=== PATIENT | male | born 1985 | race Caucasian/White ===

== ENCOUNTER 2016-11-21 19:50 | Emergency (ER) | payer OTHER ==
[2016-11-21 22:19] VITALS: BP 118/68
== END 2016-11-21 22:19 | disposition home or self-care (01) ==
LOC: ED 19:50
DX: S39.012A Strain of muscle, fascia and tendon of lower back, initial encounter (principal); X58.XXXA Exposure to other specified factors, initial encounter; Y93.89 Activity, other specified; Y99.8 Other external cause status; Y92.89 Other specified places as the place of occurrence of the external cause
CPT/HCPCS: J3010; Q0162

== ENCOUNTER 2017-02-22 12:11 | Emergency (ER) | payer OTHER ==
[~2017-02-22] VITALS: Ht 180.3 cm; Wt 68.5 kg
[2017-02-22 13:17] VITALS: BP 108/88
== END 2017-02-22 13:17 | disposition home or self-care (01) ==
LOC: ED 12:11
DX: M54.5 Low back pain (principal); F17.200 Nicotine dependence, unspecified, uncomplicated
CPT/HCPCS: J1885

== ENCOUNTER 2017-04-20 10:25 | Emergency (ER) | payer OTHER ==
[~2017-04-20] VITALS: Ht 180.3 cm; Wt 70.5 kg
[2017-04-20 11:07] VITALS: BP 101/58
== END 2017-04-20 12:00 | disposition home or self-care (01) ==
LOC: ED 10:25
DX: J11.1 Influenza due to unidentified influenza virus with other respiratory manifestations (principal)

== ENCOUNTER 2017-05-09 16:54 | Emergency (ER) | payer OTHER ==
[~2017-05-09] VITALS: Ht 180.3 cm; Wt 72.8 kg
[2017-05-09 17:12] VITALS: BP 117/73
== END 2017-05-09 20:10 | disposition home or self-care (01) ==
LOC: ED 16:54
DX: S39.012A Strain of muscle, fascia and tendon of lower back, initial encounter (principal); X50.9XXA Other and unspecified overexertion or strenuous movements or postures, initial encounter; Y93.89 Activity, other specified; Y92.89 Other specified places as the place of occurrence of the external cause; Y99.8 Other external cause status
CPT/HCPCS: J1885

== ENCOUNTER 2017-06-08 22:41 | Emergency (ER) | payer OTHER ==
[~2017-06-08] VITALS: Ht 180.3 cm; Wt 74.4 kg
[2017-06-08 23:04] VITALS: Ht 180.3 cm; Wt 74.4 kg
[2017-06-09 00:04] VITALS: BP 127/71
== END 2017-06-09 00:04 | disposition home or self-care (01) ==
LOC: ED 22:41
DX: S61.212A Laceration without foreign body of right middle finger without damage to nail, initial encounter (principal); W26.0XXA Contact with knife, initial encounter; Y93.89 Activity, other specified; Y99.8 Other external cause status; Y92.89 Other specified places as the place of occurrence of the external cause
CPT/HCPCS: 90715; A4570